=== PATIENT | female | born 1990 | race Caucasian/White ===

== ENCOUNTER → 2020-07-14 10:36 | Outpatient (CLI) | payer OTHER, SELFPAY ==
--- NOTE | 2020-07-14 | DI.MRI.S_ITS ---
PROCEDURE: MR HIP LT W CON INDICATIONS: PAIN IN LEFT HIP TECHNIQUE: After the administration of 10 mL of dilute intra-articular Gadolinium contrast, coronal STIR of the bony pelvis; coronal and oblique axial T1 spin echo with fat saturation, axial T2 fast spin echo with fat saturation, sagittal T1 spin echo with and without fat saturation of the involved hip. COMPARISON: [facility], , [place] HIP INJECTION MR/CT LT, 07/14/2020, 11:05. FINDINGS: Image quality: Excellent. Bones and joints: Bone marrow of the pelvic ring and proximal femurs show normal signal throughout. No intraosseous lesions or fractures. Slight prominence of superior left femoral head neck junction is seen which can be seen associated with CAM type femoral acetabular impingement. No avascular necrosis of the femoral head. The visualized lower lumbar spine appears normally aligned. The ligamental, neck, and labral plicae appear normal where visualized. Tendons and ligaments: The gluteus medius and minimus tendons appear intact, without associated muscle atrophy. The nearby proximal iliotibial band also appears intact. The iliopsoas tendon appears intact, without adjacent bursal fluid collections or evidence for impingement syndrome. The origin of the hamstring tendon is intact at the ischial tuberosity, as well as the associated sacrotuberous ligament. The straight and reflected heads of the rectus femoris muscle origin appear intact, as well as the conjoint tendon. The ligamentum teres appears intact where visualized. Labrum and cartilage: Subtle area of signal abnormality and contrast extension in superior anterior left hip labrum is seen best seen on series 5 image 7, series 6 image 15. Cartilage surface of the femoral head appears of normal thickness. No paralabral cysts. The alpha angle of the femur is within normal limits at less than 55 degrees. Soft tissues: Visualized muscles demonstrate normal bulk and internal signal. Quadratus femoris muscle demonstrates no internal edema to suggest ischiofemoral impingement. The proximal sciatic neurovascular bundle appears normal adjacent to the hamstring tendons. No free pelvic fluid. Bladder wall thickness is normal. Genitourinary structures and bowel loops appear normal where visualized. IMPRESSION: 1. Subtle focal superior anterior left hip labral tear as above. 2. Slight superior prominence of left femoral head neck junction which can be associated with CAM type femoral acetabular impingement. No marrow signal abnormality. No fracture or dislocation. 3. No evidence of avascular necrosis of femoral head. 4. No gross muscle or tendon signal abnormality. Dictated by: Shakeel Salgado M.D. on 07/14/2020 at 13:05 Approved by: Shakeel Salgado M.D. on 07/14/2020 at 13:34
--- NOTE | 2020-07-14 | DI.RAD.S_ITS ---
PROCEDURE: [place] HIP INJECTION MR/CT LT INDICATIONS: PAIN IN LEFT HIP TECHNIQUE: The indications, alternatives, benefits, risks, and complications of the procedure were explained to the patient. Written informed consent was obtained and placed in the chart. The hip was examined fluoroscopically with the legs fixed in slight internal rotation, and a site for needle placement chosen for entry into the hip joint from an anterior approach. Care was taken to locate the common femoral artery and vein beforehand. The skin was prepped and draped in a sterile fashion, and 1% Lidocaine infiltrated from skin down to joint capsule. A spinal needle was inserted into the joint, and a small amount of iodinated contrast media injected to confirm intra-articular placement of the needle tip. This was followed by approximately 10 mL dilute solution of a gadolinium containing MR contrast agent. The needle was removed and a dressing was applied. The patient was given postprocedural instructions and sent to the MR suite for imaging. COMPARISON: None. FINDINGS: A single fluoroscopic spot image demonstrates intra-articular location of injected iodinated contrast. IMPRESSION: Successful fluoroscopically guided administration of dilute Gadolinium solution into the hip joint for MR arthrogram. Dictated by: James Joy M.D. on 07/14/2020 at 13:09 Approved by: James Joy M.D. on 07/14/2020 at 13:18
== END ==
PROVIDERS: PCP Family Medicine; Referring Provider Orthopaedic Surgery; Visit Provider Orthopaedic Surgery
DX: M25.552 Pain in left hip (principal); S73.192A Other sprain of left hip, initial encounter
CPT/HCPCS: 27093; 73722; 77002

== ENCOUNTER 2021-08-26 17:03 | Emergency (ER) | payer OTHER, SELFPAY ==
[2021-08-26 17:13] VITALS: BP 139/94; PULSE 95; RESP 18; TEMP 36.9; O2SAT 100; BMI 27.4
--- NOTE | 2021-08-26 17:31 | ED.GENADULT ---
HPI - General Adult General Chief complaint: Vaginal Bleeding Stated complaint: 7 weeks excessive bleeding Time Seen by Provider: 08/26/21 17:14 Source: patient Mode of arrival: Ambulatory History of Present Illness HPI narrative: 30-year-old at 7 weeks 2 days with in-vitro fertilization had intercourse and then postcoital spotting. She is having no cramping and was not having any spotting prior to intercourse. At this point she has had enough dark red blood to fill up a panty liner. She has an appointment at [facility] tomorrow with her perinatologist with ultrasound and blood work expected at that time. She describes no fevers, abdominal pain, vomiting, diarrhea, headaches, palpitations or dyspnea. Related Data Allergies Allergy/AdvReac Type Severity Reaction Status Date / Time No Known Drug Allergies Allergy Verified 08/26/21 17:16 Review of Systems Review of Systems Narrative: Remainder of complete review of systems is otherwise unremarkable except for that included in the HPI. Patient History Social History Smoking Status: Never smoker Smoking Status: Never smoker Substance Use Type: does not use Exam Initial Vital Signs Initial Vital Signs: Vital Signs Temperature 98.5 F 08/26/21 17:13 Pulse Rate 95 H 08/26/21 17:13 Respiratory Rate 18 08/26/21 17:13 Blood Pressure 139/94 H 08/26/21 17:13 Pulse Oximetry 100 08/26/21 17:13 General: Alert appropriate in no acute distress Respiratory: Able to speak in full sentences, no obvious respiratory distress Skin: No obvious rashes, warm and dry Neurologic: Grossly intact no obvious asymmetries or abnormalities Psych: appropriate insight and affect, cooperative Vaginal exam: Cervix is long firm closed. There is a small amount of clot appreciated in the posterior fornix. Bedside ultrasound reveals intrauterine . Yolk sac is noted it is measuring 7 weeks 0 days crown-rump length, with an heartbeat in the 160 range. Internal os is closed. There was a question of some fullness in the posterior portion of the uterus that could be slight contraction, small fibroid with the possibility of a small subchorionic hemorrhage with no active bleeding is also within the realm. Course Orders Ordered: ED Orders 08/26/21 17:16 US OB <= 14 weeks fetus Stat Vital Signs Vital signs: Vital Signs - 8 hr 08/26/21 17:13 Temperature 98.5 F Pulse Rate 95 H Respiratory Rate 18 Blood Pressure 139/94 H Pulse Oximetry 100 Medical Decision Making MDM Narrative Medical decision making narrative: 30-year-old with postcoital bleeding. Intrauterine fetus is confirmed with bedside ultrasound 7 weeks 0 days consistent with her 7 week 2 days known IVF implantation date. At this point she is having no cramping and heartbeat is reassuring. I suspect that this likely represents an superficial cervical blood vessel irritation however possibility of miscarriage remains. All of this is reviewed with patient and her . At this time with an active heartbeat and no continued active bleeding will not proceed with any additional workup including blood work. She does have an appointment tomorrow morning with all of her OB care providers with anticipation of formal ultrasound and blood work that time. With shared decision making patient and her agreed that there would be little benefit to blood work done this evening and opted to wait until tomorrow. Did discuss with them the importance of returning should she have heavy bright red vaginal bleeding. They are safe for home discharge at this time Discharge Plan Departure Patient Disposition: Home Clinical Impression: Threatened Instructions: DI for Threatened Activity Restrictions/Additional Instructions: Thank you for coming in today It is always scary when there is bleeding during a . Any time there is bleeding we are concerned about a possible miscarriage. Your bedside ultrasound today was very reassuring with a 7 week 0 day fetus measured by crown-rump length with a heart rate at 160. You do not have any active bright red bleeding at this time. The most likely explanation for the blood you are seeing is that this is a broken blood vessel over your cervix and related to intercourse. There still remains a possibility that this could progress to miscarriage. I am going to recommend pelvic rest for 3 days which means no fingers, penises, toys or orgasms. Walking is OK, but avoid significant exercise or heavy lifitng. Given the small amount of blood that I could still feel at the top of your cervix, I would expect at least another panty liner's amount of bleeding. After that, dark brown discharge as the remainder of that blood clears from your vagina. Please keep your appointment for ultrasound tomorrow. If there are additional concerns at that time you can discuss with your OB docotr and have quantitative beta HCG drawn to be followed. If you are having worsening bleeding or additional concerns this evening, please return to the ER. I wish you the very best with this Referrals: Leonor Oshea [Primary Care Provider] -
== END 2021-08-26 17:49 | disposition home or self-care (01) ==
PROVIDERS: Emergency Provider Emergency Medicine; PCP Family Medicine
DX: O20.0 Threatened abortion (principal); Z3A.01 Less than 8 weeks gestation of pregnancy
CPT/HCPCS: 81003; 99281; 99282

== ENCOUNTER → 2021-09-25 13:47 | Outpatient (CLI) | payer OTHER, SELFPAY ==
[2021-09-25 15:21] LABS: Add Manual Diff / Slide Review NO; Basophils Absolute Auto 0 /uL (0-100); Basophils Percent Auto 0.5 % (0-2); Eosinophils Absolute Auto 200 /uL (0-450); Eosinophils Percent Auto 1.9 % (2-4); Hematocrit 35.9 % (36-46); Hemoglobin 12.6 g/dL (12.0-16.0); Lymphocytes Absolute Auto 2000 /uL (1100-4500); Lymphocytes Percent Auto 22.1 % (25-40); Mean Corpuscular HGB Conc 35.2 % (30-36); Mean Corpuscular Hemoglobin 32.1 PG (26-34); Mean Corpuscular Volume 91.2 fL (80-100); Monocytes Absolute Auto 500 /uL (0-900); Monocytes Percent Auto 5.9 % (3-14); Neutrophils Absolute Auto 6200 /uL (1500-7000); Neutrophils Percent Auto 69.6 % (50-75); Platelet Count 241 X10^3/uL (150-400); Red Blood Cell Count 3.94 X10^6/uL (4.0-5.2); Red Cell Distribution Width 12.3 % (11.6-14.8); White Blood Cell Count 8.9 X10^3/uL (4.5-11.0)
[2021-09-25 19:13] LABS: Appearance Urine UA CLEAR; Bilirubin Urine UA NEGATIVE (NEGATIVE); Color Urine UA YELLOW; Glucose Urine UA NEGATIVE (Negative); Ketones Urine UA NEGATIVE (NEGATIVE); Leukocyte Esterase Urine UA 1+ (NEGATIVE); Nitrite Urine UA NEGATIVE (Negative); Occult Blood Urine UA NEGATIVE (Negative); Protein Urine UA NEGATIVE (Negative); Specific Gravity Urine UA <=1.005 (1.000-1.035); Urobilinogen Urine UA 0.2 E.U./dL (0.2)
[2021-09-25 19:23] LABS: RBC Urine None Seen (0-5/HPF); Squamous Epithelial Cell Urine 5-10 /HPF (0-5/HPF); WBC Urine 5-10/HPF (0-5/HPF)
[2021-09-25 19:24] LABS: Bacteria Urine Moderate (10-30)
[2021-09-26 05:43] LABS: RPR Screen Non Reactive (Non Reactive)
[2021-09-26 08:04] LABS: Varicella IgG Antibody 2240 index (Immune >165)
[2021-09-27 16:49] LABS: Hepatitis B Surface Antigen NEGATIVE s/c (NEGATIVE); Rubella Antibody IgG 27.1 IU/mL (>15)
[2021-09-27 17:07] LABS: HIV 1 & 2 Ab/Ag 4th Gen Combo NEGATIVE (NEGATIVE); Hep C Virus Ab w/Reflex Quant NEGATIVE s/c (NEGATIVE)
== END ==
PROVIDERS: PCP Family Medicine; Referring Provider Obstetrics & Gynecology; Visit Provider Obstetrics & Gynecology
DX: Z34.01 Encounter for supervision of normal first pregnancy, first trimester (principal)
CPT/HCPCS: 36415; 80055; 81003; 81015; 86787; 86803; 86850; 86900; 86901; 87086; 87389

== ENCOUNTER → 2021-10-23 11:04 | Outpatient (CLI) | payer OTHER, SELFPAY ==
[2021-10-25 20:48] LABS: AFP, Serum 32.5 ng/mL (.); Inhibin A, Dimeric 130.06 pg/mL (.); Inhibin A, MoM 0.89 (.); Maternal Ethnicity Caucasian (.); Maternal Weight 167 lbs (.); Number of Fetuses No (.); OSBR Risk 1 IN 10000 (.); Results Report (.); Test Results *Screen Negative* (.); hCG, MoM 1.01 (.); hCG, Serum 39708 mIU/mL (.)
== END ==
PROVIDERS: PCP Family Medicine; Referring Provider Obstetrics & Gynecology; Visit Provider Obstetrics & Gynecology
DX: Z34.02 Encounter for supervision of normal first pregnancy, second trimester (principal); Z3A.16 16 weeks gestation of pregnancy
CPT/HCPCS: 36415; 82105; 82677; 84702; 86336

== ENCOUNTER 2021-11-30 15:39 | Observation (INO) | payer OTHER, SELFPAY ==
--- NOTE | 2021-11-30 14:42 | DI.US.S_ITS ---
PROCEDURE: US OB >= 14 WEEKS FETUS INDICATIONS: ANATOMY OUTSIDE/PRIOR DATING DATA: Last menstrual period (LMP): Unknown First dating scan (date and location): Unknown Per patient, estimated date of delivery from in-vitro fertilization is 04/12/2022. Working ultrasound estimated date of delivery is 04/14/2022 TECHNIQUE: Real-time scanning was performed of the fetus, with image documentation and biometric measurements. Endovaginal scanning: None COMPARISON: None. FINDINGS: General: A single living intrauterine gestation is present. Presentation: Breech Placenta: Anterior, without previa Amniotic fluid index: 14.7 heart rate: 149 beats per minute Maternal cervical canal: No measurable cervix is identified. There is fluid at the expected location. biometrics: Biparietal diameter: 5.3 cm Head circumference: 19.5 cm Abdominal circumference: 15.6 cm Femur length: 3.3 cm Clinically estimated gestational age: Working ultrasound date is 20 weeks and 5 days Composite gestational age from present scan: 21 weeks and 2 days Estimated weight and percentile: 177 g Using the working estimated delivery date, EFW is at the 49th percentile. Maternal adnexal structures are not well seen. Anatomic survey: Neuro: Ventricles are non-dilated at less than 10 mm. Cisterna magna is normal at 3-11 mm. Cerebellum is normal in size and morphology. Nuchal skin fold: Normal at less than 6 mm between 14-21 weeks gestational age. Face: Nose and lips, facial profile are normal. Spine: No evidence for spina bifida. Heart: 4-chambered heart is present, with normal ventricular outflow tracts. Diaphragm: Diaphragm is intact. Stomach: Left-sided stomach is present. Kidneys: No hydronephrosis. Normal is less than 5 mm in 2nd trimester, less than 7 mm in 3rd trimester. Cord: 3-vessel cord has orthotopic insertion. Bladder: Normal in size. Extremities: All 4 extremities identified. IMPRESSION: Single living intrauterine gestation at a clinically estimated gestational age of 20 weeks and 5 days, with concordant biometry today at 21 weeks and 2 days with estimated weight at the 49th percentile. Cervix is not measurable and filled with fluid. Dr. Dee was called and patient was sent for followup. Breech presentation. Normal and complete routine anatomic survey. We strive to produce accurate, complete, and clear reports of imaging services. To assist us in improving patient care, this report was composed using standard report templates and voice recognition software. Therefore, it may contain abnormal punctuation, insertions and/or omissions. Occasional wrong-word or sound-alike substitutions may occur. Though we review the report and make efforts to correct it, we do recommend that the report be read carefully in proper context to recognize any text inaccuracies. Dictated by: Boni Valencia M.D. on 11/30/2021 at 16:21 Approved by: Boni Valencia M.D. on 11/30/2021 at 16:34
--- NOTE | 2021-11-30 16:25 | P.TNLD_ITS ---
Visit Information Visit Information Date of evaluation: 11/30/21 Primary OB Provider: Tyson Dee Reason for Evaluation: Yes other Comments/Additional reasons for admission: Patient is a 31 yo at 21+0 by solid dates (IVF) who was found to have no measurable cervix on 20 wk anatomy scan earlier this afternoon. She denies contractions/cramping, leakage of fluid PV, change in discharge. Vital Signs Vital Signs: 134/79, P=68, T=37.2C [facility] Medical History (Updated 10/23/21 @ 10:51 by Tyson Dee MD) Ovarian cyst Surgical History (Updated 09/25/21 @ 16:15 by Jamila Medley, RN) History of foot surgery [place] teeth extracted Family History (Updated 09/25/21 @ 16:17 by Jamila Medley, ADALI) Grandmother Diabetes mellitus Hypertension Grandfather Diabetes mellitus Hypertension Grandmother Diabetes mellitus Hypertension Grandfather Hypertension Diabetes mellitus Brother Multiple sclerosis Social History marital status: number of children: 0 household members: spouse and friend(s) lives independently: Yes housing: house pets and animals: Yes (2 dogs) education level: college (Associate's degree) 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) current occupational exposures/hazards: No special froilan needs: No travel history: recent ([place]) seatbelt use: always water heater temp set < 120 deg: Yes working smoke detector in home: Yes fire extinguisher in home: Yes carbon monox detector in home: Yes firearms in home: Yes firearms unloaded and locked: Yes do you feel safe at home: Yes Smoking Status: Never smoker second hand exposure: No alcohol intake: former substance use type: does not use during the past year weight has: decreased > 10 lbs well-balanced diet: about half the time daily servings fruits/ve-4 caffeine: No Type(s) of exercise: walking and irregular exercise Review of Systems Review of Systems Narrative: Problem-specific ROS positives included in HPI Exam Const General: cooperative and anxious Nutritional Appearance: average body habitus Orientation: alert and oriented x3 HENMT Head: normal to inspection, normocephalic and atraumatic Eyes General: appearance normal, both eyes and all related structures Resp Effort & Inspection: normal respiratory effort and able to speak in complete sentences Auscultation: clear to auscultation bilaterally Cardio Rate: regular rate Rhythm: regular rhythm Heart Sounds: S1 normal, S2 normal and no murmurs GI Inspection: normal to inspection Palpation: soft, no hepatosplenomegaly and No tender External Female Exam: normal external appearance Other: SVE: 100% effaced/dilation difficult to assess but feels perhaps 1-2 cm dilated, no hourglassing membranes/presenting part at -2 station Extrem Right lower extremity: normal to inspection Objective Imaging 20 WK. ANATOMY SCAN: Radiologist's impression: PROCEDURE:? US OB >= 14 WEEKS FETUS ? INDICATIONS:? ANATOMY ? OUTSIDE/PRIOR DATING DATA:? Last menstrual period (LMP):? Unknown First dating scan (date and location):? Unknown Per patient, estimated date of delivery from in-vitro fertilization is 04/12/2022. Working ultrasound estimated date of delivery is 04/14/2022 ? TECHNIQUE:? Real-time scanning was performed of the fetus, with image documentation and biometric measurements.? Endovaginal scanning:? None ? COMPARISON:? None. ? ? FINDINGS:? ? General:? A single living intrauterine gestation is present.? Presentation:? Breech Placenta:? Anterior, without previa Amniotic fluid index:? 14.7 heart rate:? 149 beats per minute Maternal cervical canal:? No measurable cervix is identified.? There is fluid at the expected location. ? ? biometrics:? Biparietal diameter:? 5.3 cm Head circumference:? 19.5 cm Abdominal circumference:? 15.6 cm Femur length:? 3.3 cm Clinically estimated gestational age:? Working ultrasound date is 20 weeks and 5 days Composite gestational age from present scan:? 21 weeks and 2 days Estimated weight and percentile:? 177 g Using the working estimated delivery date, EFW is at the 49th percentile. ? Maternal adnexal structures are not well seen. ? Anatomic survey:? Neuro:? Ventricles are non-dilated at less than 10 mm.? Cisterna magna is normal at 3-11 mm.? Cerebellum is normal in size and morphology. Nuchal skin fold:? Normal at less than 6 mm between 14-21 weeks gestational age.? Face:? Nose and lips, facial profile are normal.? Spine:? No evidence for spina bifida.? Heart:? 4-chambered heart is present, with normal ventricular outflow tracts.? Diaphragm:? Diaphragm is intact.? Stomach:? Left-sided stomach is present.? Kidneys:? No hydronephrosis.? Normal is less than 5 mm in 2nd trimester, less than 7 mm in 3rd trimester.? Cord:? 3-vessel cord has orthotopic insertion.? Bladder:? Normal in size.? Extremities:? All 4 extremities identified.? ? ? IMPRESSION:? Single living intrauterine gestation at a clinically estimated gestational age of 20 weeks and 5 days, with concordant biometry today at 21 weeks and 2 days with estimated weight at the 49th percentile. ? Cervix is not measurable and filled with fluid. Dr. Dee was called and patient was sent for followup.? Breech presentation. Evaluation Evaluation Baseline heart rate: 150 Variability: Average (6-10) Uterine Contraction Intensity: Mild Cervical dilation (cm): 2 station: -2 Comments: Uterine irritability on monitor but no perception of pain/cramps/contractions by patient. Diagnosis, Plan/Disposition Plan/Disposition Plan: Case reviewed with [facility] MFM Dr. Rodger Shrestha who will accept the patient in transfer after 1900 this evening. Recommends against starting MgSO4 or steroids. Patient to be transfered via [facility] ambulance. OB Disposition: tertiary care transfer
[2021-11-30 17:14] LABS: COVID19 -Nasal RAPID Negative (Negative)
== END 2021-11-30 17:00 | disposition home or self-care (01) ==
LOC: LABOR 15:39
PROVIDERS: Admitting Provider Obstetrics & Gynecology; PCP Family Medicine; Referring Provider Obstetrics & Gynecology; Visit Provider Obstetrics & Gynecology
DX: O34.32 Maternal care for cervical incompetence, second trimester (principal); Z3A.21 21 weeks gestation of pregnancy; Z20.822 Contact with and (suspected) exposure to COVID-19; Z34.92 Encounter for supervision of normal pregnancy, unspecified, second trimester; Z3A.15 15 weeks gestation of pregnancy
CPT/HCPCS: 59050; 76811; 87635; 87653; 96360; C9803; G0378

== ENCOUNTER → 2021-11-30 16:55 | Outpatient (CLI) | payer OTHER, SELFPAY ==
[2021-12-01 16:01] LABS: Strep Grp B PCR POS for Grp B Strep
== END ==
PROVIDERS: PCP Family Medicine; Visit Provider Obstetrics & Gynecology
DX: Z34.92 Encounter for supervision of normal pregnancy, unspecified, second trimester (principal); Z3A.15 15 weeks gestation of pregnancy
CPT/HCPCS: 87653

== ENCOUNTER 2021-12-05 14:18 | Outpatient (CLI) | payer OTHER, SELFPAY ==
--- NOTE | 2021-12-05 15:16 | PM.OBTRLD ---
Visit Information Visit Information Date of evaluation: 12/05/21 Primary OB Provider: Tyson Dee Reason for Evaluation: Yes other Comments/Additional reasons for admission: Yvonne is a 31 yo KAR 04/12/2022 now at 21+5 weeks EGA who presents with painless intermittent spotting since having a cerclage placed at [facility] on 12/01/2021. She's not having any contractions or pain and her baby remains active [facility] Medical History Ovarian cyst Surgical History History of foot surgery [place] teeth extracted Family History Grandmother Diabetes mellitus Hypertension Grandfather Diabetes mellitus Hypertension Grandmother Diabetes mellitus Hypertension Grandfather Hypertension Diabetes mellitus Brother Multiple sclerosis Social History marital status: number of children: 0 household members: spouse and friend(s) lives independently: Yes housing: house pets and animals: Yes (2 dogs) education level: college (Associate's degree) 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) current occupational exposures/hazards: No special froilan needs: No travel history: recent ([place]) seatbelt use: always water heater temp set < 120 deg: Yes working smoke detector in home: Yes fire extinguisher in home: Yes carbon monox detector in home: Yes firearms in home: Yes firearms unloaded and locked: Yes do you feel safe at home: Yes Smoking Status: Never smoker second hand exposure: No alcohol intake: former substance use type: does not use during the past year weight has: decreased > 10 lbs well-balanced diet: about half the time daily servings fruits/ve-4 caffeine: No Type(s) of exercise: walking and irregular exercise Exam Const General: cooperative and anxious Nutritional Appearance: average body habitus Orientation: alert and oriented x3 HENMT Head: normal to inspection, normocephalic and atraumatic Eyes General: appearance normal, both eyes and all related structures Resp Effort & Inspection: normal respiratory effort and able to speak in complete sentences Auscultation: clear to auscultation bilaterally External Female Exam: normal external appearance and other (Cerclage stitch tag at introitus) Speculum Exam - Vagina: normal appearance of the vagina and normal vaginal discharge Speculum Exam - Cervix: cervical os open (1-2 cm with single cerclage stitch in place. Membranes visible, intact) and other (Light blood stained mucus; no active bleeding) OB/External & Speculum: cervical os open (1-2 cm with single cerclage stitch in place. Membranes visible, intact) Extrem Right lower extremity: normal to inspection Evaluation Evaluation Baseline heart rate: 155 Comments: No contractions noted on external monitoring Diagnosis, Plan/Disposition Final Diagnosis (1) resulting from in-vitro fertilization: Status: Acute (2) : Status: Acute (3) Incompetent cervix during second trimester, antepartum: Status: Acute (4) Cervical cerclage suture present in second trimester: Status: Acute (5) Spotting affecting in second trimester: Status: Acute Plan/Disposition Plan: Patient is scheduled to follow-up with [facility] MFM tomorrow with further plans re: management based on findings and MFM recommendations. In the interim will continue bedrest/light activities with existing precautions. OB Disposition: home
== END 2021-12-05 15:25 | disposition home or self-care (01) ==
LOC: LABOR 14:41 → OB 12-10 12:51
PROVIDERS: PCP Family Medicine; Referring Provider Obstetrics & Gynecology; Visit Provider Obstetrics & Gynecology
DX: O26.852 Spotting complicating pregnancy, second trimester (principal); O34.32 Maternal care for cervical incompetence, second trimester; O09.812 Supervision of pregnancy resulting from assisted reproductive technology, second trimester; Z3A.21 21 weeks gestation of pregnancy
CPT/HCPCS: 59050; G0378; G0379